=== PATIENT | male | born 1995 | race Two or more races ===

== ENCOUNTER 2025-06-01 20:48 | Emergency (ER) | payer MEDICAID, OTHER, SELFPAY ==
--- NOTE | ~2025-06-01 | CT_ITS ---
CLINICAL HISTORY: chronic bilateral flank and bladder pain CT abdomen and pelvis with contrast Comparison: None provided Findings: No consolidation or effusion. The gallbladder and solid organs are within normal limits. No renal stones. No bowel obstruction, pneumoperitoneum, or pneumatosis. Pelvic contents unremarkable. Normal appendix. The bones are intact. IMPRESSION: No acute findings. No hydronephrosis or nephrolithiasis. This document has been electronically signed by: Lee Mao MD on 06/01/2025 22:35:41
[2025-06-01 20:52] VITALS: BP 118/79; PULSE 85; RESP 20; TEMP 36.8; O2SAT 99
[2025-06-01 21:15] LABS: Hematocrit 41.7 % (42.0-52.0); Hemoglobin 15.0 g/dl (14.0-18.0); Mean Corpuscular HGB Conc 36.0 g/dl (31.0-36.0); Mean Corpuscular Hemoglobin 30.9 pg (27.0-33.0); Mean Corpuscular Volume 86.0 fL (80.0-98.0); NRBC Abs Auto 0.000 X10*3/uL (0.0-0.012); NRBC Pct Auto 0.0 /100WBC (0.0-0.2); Platelet Count 189 X10*3/uL (160-400); Red Blood Count 4.85 X10*6/uL (4.60-5.80); White Blood Count 6.9 X10*3/uL (4.8-10.8)
--- NOTE | 2025-06-01 21:26 | ED_ITS ---
HPI - General Adult General Chief complaint: General Medical Stated complaint: back/testicular pain Time Seen by Provider: 06/01/25 21:14 Source: patient Mode of arrival: ambulatory Limitations: no limitations History of Present Illness ED Provider: Dr. Kiah Hood HPI narrative: Patient comes to the emergency room complaining of 5 years of pelvic pain and testicular pain. Patient states that at initially the pain started out in the bladder region and throughout the years it has been radiating towards both hips. Patient states that he constantly has testicular pain for the last 5 years. Patient reports that he has been seen at various emergency rooms, blood work and urinalysis has been all negative. Patient states that he went to [place] a few weeks ago to get a more thorough workup done. Patient states that he got ultrasounds done, blood cultures, urine cultures. According to the patient, in [place] he was diagnosed with varicocele. Also, patient states that he was diagnosed with an E coli infection in both urine and semen, for which she received p.o. antibiotics. Patient denies any fever, any chills, no weight loss. Patient denies hematuria or dysuria. Related Data Allergies Allergy/AdvReac Type Severity Reaction Status Date / Time No Known Allergies Allergy Verified 06/01/25 20:55 Review of Systems 2 Review of Systems: Constitutional : No Weight loss, No Fever, No Chills, No Night Sweats, No Fatigue, No Malaise ENT/Mouth : No Hearing loss, No Ear Pain, No Nasal Congestion, No Sinus Pain, No Hoarseness, No sore throat, No Rhinorrhea, No Swallowing Difficulty Eyes: No Eye Pain, No Swelling, No Redness, No Foreign Body, No Discharge, No Vision Changes Cardiovascular : No Chest Pain, No SOB, No Dyspnea on Exertion, No Orthopnea, No Edema, No Palpitations Respiratory : No Cough, No Sputum, No Wheezing, No Smoke Exposure, No Dyspnea Gastrointestinal : No Nausea, No Vomiting, No Diarrhea, No Constipation, No abdominal Pain, No Hematochezia, No Melena Genitourinary : Complaining of chronic bladder pain, no hematuria or dysuria Musculoskeletal : Complaining of chronic bilateral hip pain radiating from the suprapubic area, No Myalgias, No Joint Swelling Skin : No Skin Lesions, No rash Neuro : No Weakness, No Numbness, No Paresthesias, No Loss of Consciousness, No Dizziness, No Headache Psych : No Anxiety/Panic, No Depression, No SI/HI/AH/VH, No Social Issues, Heme/Lymph: No Bruising, No Bleeding,No Lymphadenopathy Endocrine : No Polyuria, No Polydipsia, No Temperature Intolerance [facility] Social History Social History Smoked in Last 30 Days: No Use of substances other than those prescribed or required for medical reasons: No Advance Directives: No Advance Directives Information Provided: No Physical Exam ED Exam Exam: Appearance: Alert. Oriented X3. No acute distress. Eyes: Pupils equal, round and reactive to light. ENT: Pharynx normal. Neck: Normal inspection. Neck supple. No lymph nodes noted. No crepitus CVS: Normal heart rate and rhythm. Pulses normal. Normal S1 and S2 Respiratory: No respiratory distress. Breath sounds normal. No Wheezing. No rales Abdomen: Soft and nontender. No rigidity. No distention. : Normal male genitalia, no pain to palpation on the testicles, no swelling, no discoloration. No inguinal masses. No obvious physical findings of varicocele or hydrocele Skin: Skin warm and dry. Normal skin color. Normal skin turgor. Extremities: No lower extremity edema. No Lacerations. No Rash Neuro: Oriented X 3. No motor deficit. No sensory deficit. Moving all extremities. No slurred speech. CN 2 through 12 grossly intact Psych: calm, cooperative, normal affect Vital Signs: Vital Signs - 24 hr 06/01/25 20:52 Temperature 98.2 F Pulse Rate 85 Respiratory Rate 20 Blood Pressure 118/79 Pulse Oximetry 99 Oxygen Delivery Method Room Air BMI result Body Mass Index 30.0 Course Course Course Narrative: Patient complaining of chronic/5 years of suprapubic pain radiating towards the hips. Also, complaining of 5 years of testicular pain. According to patient, he has a thorough workup at various hospitals in the area and in [place]. No new symptoms today. Basic lab work pending. Per patient, he has a results with him from his ultrasounds done previously in [place]. Patient has not had a CT scan done yet. Medications Administered Discontinued Medications Generic Name Dose Route Start Last Admin Trade Name Freq PRN Reason Stop Dose Admin Iohexol 85 ml 06/01/25 21:57 06/01/25 21:57 Iohexol 350 Mg/Ml 100 Ml Infus..Btl IV 06/01/25 21:58 85 ml ONCE ONE Administration Medical Decision Making Medical Decision Making [facility] Narrative: Patient of labs: No significant abnormality patient's hematology and chemistry, urinalysis negative for UTI CT scan does not show any acute abnormality. At this time, I do not believe that an ultrasound of the scrotum/testicles would be of any benefit. Patient reports testicular pain for 5+ years with multiple evaluations at different hospitals into different countries I discussed with the patient the results, no acute findings. We will refer the patient to Urology Patient agrees with plan Differential Diagnosis Differential Diagnoses: The differential diagnosis associated with the presentation includes (Testicular mass, cystitis, varicocele) Admission/Observation Consideration of admission/observation: Escalation of care including admission/observation considered (Patient's length of symptoms, observation was considered) Lab Data [facility] Lab Attestation statement: I reviewed the patient's lab results. 06/01/25 21:10 06/01/25 21:10 Labs: Lab Results 06/01/25 06/01/25 Range/Units 21:10 21:25 WBC 6.9 (4.8-10.8) X10*3/uL RBC 4.85 (4.60-5.80) X10*6/uL Hgb 15.0 (14.0-18.0) g/dl Hct 41.7 L (42.0-52.0) % MCV 86.0 (80.0-98.0) fL MCH 30.9 (27.0-33.0) pg MCHC 36.0 (31.0-36.0) g/dl RDW 12.3 (11.0-16.0) % Plt Count 189 (160-400) X10*3/uL MPV 11.5 (9.4-12.4) fL Absolute Nucleated RBC 0.000 (0.0-0.012) X10*3/uL Nucleated RBC % (auto) 0.0 (0.0-0.2) /100WBC Sodium 139 (135-145) mmol/L Potassium 4.0 (3.3-5.1) mmol/L Chloride 109 H (96-108) mmol/L Carbon Dioxide 22 (22-29) mmol/L Anion Gap 12 (12-20) BUN 8 L (9-16) mg/dL Creatinine 0.83 (0.5-1.4) mg/dL Estim Creat Clear Calc 128.0 Estimated GFR > 60 Random Glucose 85 (60-115) mg/dL Calcium 9.0 (8.4-10.2) mg/dL Total Bilirubin 0.3 (0.0-1.0) mg/dL AST 41 H (5-37) U/L ALT 47 H (0-40) U/L Alkaline Phosphatase 82 (39-117) U/L Total Protein 7.6 (6.5-8.0) g/dL Albumin 4.9 (3.5-5.0) g/dL Urine Color Yellow Urine Appearance Clear Urine pH 5.5 (5.0-9.0) Ur Specific [place] 1.015 (1.005-1.025) Urine Protein Negative (Neg-Trace) mg/dL Urine Glucose (UA) Negative (Negative) mg/dL Urine Ketones Negative (Negative) mg/dL Urine Blood Negative (Negative) Urine Nitrite Negative (Negative) Ur Leukocyte Esterase Negative (Negative) Independent Interpretation I performed an independent interpretation of an: CT Scan Radiology Impression Discussion of test interpretation with radiology: I have reviewed the radiologist's reading. Radiologist Impression: No consolidation or effusion. The gallbladder and solid organs are within normal limits. No renal stones. No bowel obstruction, pneumoperitoneum, or pneumatosis. Pelvic contents unremarkable. Normal appendix. The bones are intact. IMPRESSION: No acute findings. No hydronephrosis or nephrolithiasis. Critical Care Time Critical Care Time Critical Care Time: Yes Total Critical Care Time: 35 Attestation: I have personally provided critical care time. Time includes review of lab data, radiology results, discussion with consultants, and monitoring for potential decompensation. Intervention performed as documented. Discharge Plan Discharge Clinical Impression: Chronic pain in testicle, Chronic suprapubic pain Patient Disposition: Home, Self-Care Instructions: Chronic Pain (ED) Additional Instructions: Please follow-up with your primary care physician tomorrow. If you have any worsening or new symptoms, please return to the emergency room or call 911 Referrals: Henry Gómez MD [Physician, Urology] Print Language: [place]
[2025-06-01 21:31] LABS: Appearance Urine Clear; Glucose Urine UA Negative (Negative); PH 5.5 (5.0-9.0); Specific Gravity - Urine 1.015 (1.005-1.025)
[2025-06-01 21:34] LABS: Alanine Aminotransferase 47 U/L (0-40); Albumin Level 4.9 g/dL (3.5-5.0); Alkaline Phosphatase 82 U/L (39-117); Anion Gap 12 (12-20); Aspartate Amino Transferase 41 U/L (5-37); Blood Urea Nitrogen 8 mg/dL (9-16); Calcium 9.0 mg/dL (8.4-10.2); Carbon Dioxide 22 mmol/L (22-29); Chloride 109 mmol/L (96-108); Creatinine Clr Calc Pharmacy 128.0; Estimated Glomerular Filt Rate > 60; Potassium 4.0 mmol/L (3.3-5.1); Sodium 139 mmol/L (135-145); Total Protein 7.6 g/dL (6.5-8.0)
--- OUTSIDE RECORDS SUMMARY | 2025-06-01 21:50 | XMS_ITS | Clinical Summary ---
Author Organization [facility] Address [address] [place] [address] Phone Care Team Providers Care Optician Apprentice Dispensing Name Role Phone Physician, Pcp Unknown Primary Care Provider Deja vailable Allergies No known active allergies Medications famotidine (PEPCID) 20 mg tablet Take 1 tablet (20 mg total) by mouth 2 (two) times a day. 14 each 11/25/2024 Active Active Problems No known active problems Encounters Date Type Department Care Team Description 05/22/2025 4:24 AM EDT - 05/22/2025 9:45 AM EDT Emergency [facility] Emergency [address] [place] [address] Flaquita Lopez MD Lyle, David C, MD Pain in both testicles (Primary Dx); Burning sensation; Elevated ALT measurement Discharge Disposition: Home or Self Care from Last 3 Months Social History Tobacco Use Types Packs/Day Years Used Date Smoking Tobacco: Never Smokeless Tobacco: Never Tobacco Cessation:Counseling Given: Not Answered Sex and Gender Information Value Date Recorded Sex Assigned at Not on file Legal Sex Male 10:45 AM EST Gender Identity Not on file Sexual Orientation Not on file Travel History Travel Start Travel End [place] 04/21/2025 05/22/2025 Obstetrics History Last Filed Vital Signs Vital Sign Reading Time Taken Comments Blood Pressure 129/89 05/22/2025 6:42 AM EDT Pulse 72 05/22/2025 6:42 AM EDT Temperature 37 C (98.6 F) 05/22/2025 6:42 AM EDT Respiratory Rate 18 05/22/2025 6:42 AM EDT Oxygen Saturation 100% 05/22/2025 6:42 AM EDT Inhaled Oxygen Concentration - - Weight 86.2 kg (190 lb) 05/22/2025 4:18 AM EDT Height 165.1 cm (5' 5 ) 05/22/2025 4:18 AM EDT Body Mass Index 31.62 05/22/2025 4:18 AM EDT Plan of Treatment Health Maintenance Due Date Last Done Comments Hepatitis B Vaccines (1 of 3 - 19+ 3-dose series) 2014 HIV Screening 09/09/2022 Hepatitis C Screening 09/09/2022 Social Influencers of Health Screening 09/09/2022 COVID-19 Vaccine (1 - 2023-2 5 season) 2024 Depression Screening 10/12/2024 Influenza Vaccine (#1) 2025 Cholesterol Screening (Lipid Panel) 11/25/2029 11/25/2024 DTaP,Tdap,and Td Vaccines (2 - Td or Tdap) 04/02/2033 04/02/2023 HIB Vaccines Aged Out No longer eligi ble based on patient's age to complete this topic HPV Vaccines Aged Out No longer eligi ble based on patient's age to complete this topic Hepatitis A Vaccines Aged Out No long er eligible based on patient's age to complete this topic IPV Vaccines Aged Out No longer eligi ble based on patient's age to complete this topic MMR Vaccines Aged Out No longer eligi ble based on patient's age to complete this topic Meningococcal ACWY Vaccine Aged Out N o longer eligible based on patient's age to complete this topic Meningococcal B Vaccine Aged Out No l onger eligible based on patient's age to complete this topic Pneumococcal Vaccine: Pediat rics (0 to 5 Years) and At-Risk Patients (6 to 49 Years) Aged Out No longer eligi ble based on patient's age to complete this topic RSV Immunization Patients Un reyes 20 months Aged Out No longer eligible b ased on patient's age to complete this topic Varicella Vaccines Aged Out No longer eligible based on patient's age to complete this topic Procedures Procedure Name Priority Date/Time Associated Diagnosis Comments CULTURE GENITAL STAT 05/22/2025 7:47 AM EDT US SCROTUM AND CONTENTS STAT 05/22/2025 7:31 AM EDT ASIF URINE CULTURE TUBE STAT 05/22/2025 5:53 AM EDT URINALYSIS WITH REFLEX MICROSCOPIC AND CULTURE STAT 05/22/2025 5:53 AM EDT URINALYSIS WITH REFLEX MICROSCOPIC AND CULTURE STAT 05/22/2025 5:53 AM EDT CHLAMYDIA TRACHOMATIS AND NEISSERIA GONORRHOEAE PCR STAT 05/22/2025 5:53 AM EDT CREATINE KINASE Add-On 05/22/2025 5:52 AM EDT CBC WITH AUTO DIFFERENTIAL STAT 05/22/2025 5:52 AM EDT C-REACTIVE PROTEIN STAT 05/22/2025 5: 52 AM EDT COMPREHENSIVE METABOLIC PANEL STAT 05/22/2025 5:52 AM EDT CBC AND DIFFERENTIAL STAT 05/22/2025 5:52 AM EDT LIPID PANEL WITH REFLEX TO DIRECT LDL Routine 11/25/2024 8:49 AM EST Generalized anxiety disorder from Last 3 Months or Most Recently Relevant to Health Maintenance Results * Culture genital (05/22/2025 7:47 AM EDT) Culture, Genital No yeast, Beta Strep group B, Neisseria gonorrhoeae, Listeria, Gardnerella vaginalis, or other predominant potentially significant pathogens noted. 05/25/2025 9:26 AM EDT [facility] Swab Urethral structure / Unknown Non-blood Collection / Unknown 05/22/2025 7:47 AM EDT 05/22/2025 8:07 AM EDT us Flaquita Lopez MD LAB MICROBIOLOGY - GENERAL ORD ERABLES Final Result [place] TRIPATH[facility] [place] ([facility]) [facility] [address] [place] [address], * US Scrotum and Contents (05/22/2025 7:31 AM EDT) Anatomical Region Laterality Modality Body Ultrasound 05/22/2025 8:10 AM EDT Impressions 05/22/2025 8:17 AM EDT Normal testicular ultrasound. -------- FINAL REPORT -------- Dictated By: Joe Hobbs Dictated Date: 05/22/2025 08:10 ET Assigned Physician: Joe Hobbs Reviewed and Electronically Signed By: Joe Hobbs Signed Date: 05/22/2025 08:17 ET Workstation ID: [id number] Transcribed By: Self Edit Transcribed Date: 05/22/2025 08:10 ET Narrative 05/22/2025 8:17 AM EDT PROCEDURE: Testicular ultrasound. HISTORY: Bilateral testicular pain, concern for epididymitis. TECHNIQUE: Grayscale, color Doppler, and spectral Doppler ultrasound of the testicles. COMPARISON: 06/20/2024. FINDINGS: The right testicle measures 4.3 x 2.1 x 3.0 cm. The left testicle measures 4.1 x 2.0 x 3.1 cm. No testicular mass. Normal bilateral testicular Doppler flow. Normal appearance of the epididymes, also with normal Doppler flow. Procedure Note Joe Hobbs MD - 05/22/2025 PROCEDURE: Testicular ultrasound. HISTORY: Bilateral testicular pain, concern for epididymitis. TECHNIQUE: Grayscale, color Doppler, and spectral Doppler ultrasound ofthe testicles. COMPARISON: 06/20/2024. FINDINGS: The right testicle measures 4.3 x 2.1 x 3.0 cm. The left testicle measures 4.1 x 2.0 x 3.1 cm. No testicular mass. Normal bilateral testicular Doppler flow. Normalappearance of the epididymes, also with normal Doppler flow. IMPRESSION: Normal testicular ultrasound. -------- FINAL REPORT -------- Dictated By: Joe Hobbs Dictated Date: 05/22/2025 08:10 ET Assigned Physician: Joe Hobbs Reviewed and Electronically Signed By: Joe Hobbs Signed Date: 05/22/2025 08:17 ET Workstation ID: [id number] Transcribed By: Self Edit Transcribed Date: 05/22/2025 08:10 ET Flaquita Lopez MD [facility] PROCEDURES Final Result * Urinalysis with reflex microscopic and culture (05/22/2025 5:53 AM EDT) Pathologist [facility] Specific [place] Urine 1.019 1.003 - 1.030 LAB URINALYSIS - AUTOMATED METHOD 05/22/2025 6:17 AM [facility] pH, Urine 6.0 5.0 - 8.0 pH LAB URINALYSIS - AUTOMATED METHOD 05/22/2025 6:17 AM [facility] Leukocytes, Urine Negative Negative LAB URINALYSIS - AUTOMATED METHOD 05/22/2025 6:17 AM [facility] Nitrite, Urine Negative Negative LAB URINALYSIS - AUTOMATED METHOD 05/22/2025 6:17 AM [facility] Protein, Urine Negative <=Trace mg/dL LAB URINALYSIS - AUTOMATED METHOD 05/22/2025 6:17 AM [facility] Glucose, Urine Negative Negative mg/dL LAB URINALYSIS - AUTOMATED METHOD 05/22/2025 6:17 AM [facility] Ketones, Urine Negative Negative mg/dL LAB URINALYSIS - AUTOMATED METHOD 05/22/2025 6:17 AM [facility] Urobilinogen, Urine 0.2 0.2 - 1.0 mg/dL LAB URINALYSIS - AUTOMATED METHOD 05/22/2025 6:17 AM [facility] Bilirubin, Urine Negative Negative LAB URINALYSIS - AUTOMATED METHOD 05/22/2025 6:17 AM [facility] Blood, Urine Negative Negative LAB URINALYSIS - AUTOMATED METHOD 05/22/2025 6:17 AM EDT [facility] Urine Urine specimen obtained by clean catch procedure / Unknown Non-blood Collection / Unknown 05/22/2025 5:53 AM EDT 05/22/2025 6:11 AM EDT Flaquita Lopez MD LAB URINE ORDERABLES Final Res ult Performing Organization Address City/[facility]/ZIP Co de Phone Number [facility] [address] [place] [address], [place] [phone] * Asif urine culture tube (05/22/2025 5:53 AM EDT) Pathologist [facility] Extra Tube Hold for add-ons. 05/22/2025 8:01 AM EDT [facility] Comment:Auto resulted. Urine Urine specimen obtained by clean catch procedure / Unknown Non-blood Collection / Unknown 05/22/2025 5:53 AM EDT 05/22/2025 6:11 AM EDT us Flaquita Lopez MD LAB URINE ORDERABLES Final Res ult Performing Organization Address City/[facility]/ZIP Co de Phone Number [facility] [address] [place] [address], [place] [phone] * Chlamydia trachomatis and Neisseria gonorrhoeae molecular study (05/22/2025 5:53 AM EDT) Pathologist [facility] Neisseria gonorrhoeae PCR Negative Negative LAB MOLECULAR DIAGNOSTICS METHOD 05/22/2025 9:21 AM EDT [facility] Chlamydia trachomatis PCR Negative Negative LAB MOLECULAR DIAGNOSTICS METHOD 05/22/2025 9:21 AM EDT [facility] Urine Urine specimen obtained by clean catch procedure / Unknown Non-blood Collection / Unknown 05/22/2025 5:53 AM EDT 05/22/2025 6:11 AM EDT us Flaquita Lopez MD LAB MICROBIOLOGY - GENERAL ORD ERABLES Final Result [facility] [address] [place] [address], * (ABNORMAL) CBC auto differential (05/22/2025 5:52 AM EDT) WBC 7.1 4.8 - 10.8 K/mcL LAB HEMETOLOGY METHOD 05/22/2025 6:22 AM EDT [facility] RBC 4.60 4.50 - 5.50 M/mcL LAB HEMETOLOGY METHOD 05/22/2025 6:22 AM EDT [facility] Hemoglobin 14.1 13.5 - 17.5 g/dL LAB HEMETOLOGY METHOD 05/22/2025 6:22 AM EDT [facility] Hematocrit 40.6(L) 42.0 - 54.0 % LAB HEMETOLOGY METHOD 05/22/2025 6:22 AM EDT [facility] MCV 88.1 79.0 - 98.0 FL LAB HEMETOLOGY METHOD 05/22/2025 6:22 AM EDT [facility] MCH 30.6 27.0 - 32.0 pcg LAB HEMETOLOGY METHOD 05/22/2025 6:22 AM EDT [facility] MCHC 34.7 32.0 - 37.0 g/dL LAB HEMETOLOGY METHOD 05/22/2025 6:22 AM EDT [facility] RDW 12.7 11.0 - 15.0 % LAB HEMETOLOGY METHOD 05/22/2025 6:22 AM EDT [facility] Platelets 183 130 - 400 K/mcL LAB HEMETOLOGY METHOD 05/22/2025 6:22 AM EDT [facility] MPV 11.1(H) 7.0 - 11.0 FL LAB HEMETOLOGY METHOD 05/22/2025 6:22 AM [facility] NRBC 0.0 <1.0 % LAB HEMETOLOGY METHOD 05/22/2025 6:22 AM [facility] NRBC Absolute 0.00 <0.10 K/mcL LAB HEMETOLOGY METHOD 05/22/2025 6:22 AM [facility] Neutrophils Relative 56.3 % LAB HEMETOLOGY METHOD 05/22/2025 6:22 AM [facility] Lymphocytes Relative 31.4 % LAB HEMETOLOGY METHOD 05/22/2025 6:22 AM [facility] Monocytes Relative 9.1 % LAB HEMETOLOGY METHOD 05/22/2025 6:22 AM [facility] Eosinophils Relative 2.5 % LAB HEMETOLOGY METHOD 05/22/2025 6:22 AM [facility] Basophils Relative 0.3 % LAB HEMETOLOGY METHOD 05/22/2025 6:22 AM [facility] Immature Granulocytes Relative 0.4 % LAB HEMETOLOGY METHOD 05/22/2025 6:22 AM [facility] Neutrophils Absolute 3.97 1.50 - 7.00 K/mcL LAB HEMETOLOGY METHOD 05/22/2025 6:22 AM [facility] Lymphocytes Absolute 2.22 1.00 - 5.00 K/mcL LAB HEMETOLOGY METHOD 05/22/2025 6:22 AM [facility] Monocytes Absolute 0.64 0.20 - 1.00 K/mcL LAB HEMETOLOGY METHOD 05/22/2025 6:22 AM [facility] Eosinophils Absolute 0.18 0.00 - 0.50 K/mcL LAB HEMETOLOGY METHOD 05/22/2025 6:22 AM [facility] Basophils Absolute 0.02 0.00 - 0.20 K/mcL LAB HEMETOLOGY METHOD 05/22/2025 6:22 AM EDT [facility] Immature Granulocytes Absolute 0.03 0.00 - 0.03 K/mcL LAB HEMETOLOGY METHOD 05/22/2025 6:22 AM EDT [facility] Blood Venous blood specimen / Unknown Venipuncture / Unknown 05/22/2025 5:52 AM EDT 05/22/2025 6:10 AM EDT us Flaquita Lopez MD LAB BLOOD ORDERABLES Final Res ult [facility] [address] [place] [address], [place] [phone] * C-reactive protein (05/22/2025 5:52 AM EDT) C-Reactive Protein <0.29 <=0.50 mg/dL LAB CHEMISTRY METHOD 05/22/2025 6:36 AM EDT [facility] Blood Venous blood specimen / Unknown Venipuncture / Unknown 05/22/2025 5:52 AM EDT 05/22/2025 6:11 AM EDT us Flaquita Lopez MD LAB BLOOD ORDERABLES Final Res ult [facility] [address] [place] [address], [place] [phone] * Creatine kinase (05/22/2025 5:52 AM EDT) Total CK 110 22 - 269 unit/L LAB CHEMISTRY METHOD 05/22/2025 6:36 AM EDT [facility] Blood Venous blood specimen / Unknown Venipuncture / Unknown 05/22/2025 5:52 AM EDT 05/22/2025 6:11 AM EDT us Flaquita Lopez MD LAB BLOOD ORDERABLES Final Res ult [facility] [address] [place] [address], * (ABNORMAL) Comprehensive metabolic panel (05/22/2025 5:52 AM EDT) Sodium 139 133 - 145 mmol/L LAB CHEMISTRY METHOD 05/22/2025 6:37 AM [facility] Potassium 4.0 3.5 - 5.5 mmol/L LAB CHEMISTRY METHOD 05/22/2025 6:37 AM [facility] Chloride 107 96 - 110 mmol/L LAB CHEMISTRY METHOD 05/22/2025 6:37 AM [facility] CO2 26 21 - 32 mmol/L LAB CHEMISTRY METHOD 05/22/2025 6:37 AM [facility] Anion Gap 6 3 - 11 LAB CHEMISTRY METHOD 05/22/2025 6:37 AM [facility] Glucose 99 70 - 100 mg/dL LAB CHEMISTRY METHOD 05/22/2025 6:37 AM [facility] BUN 10 5 - 25 mg/dL LAB CHEMISTRY METHOD 05/22/2025 6:37 AM [facility] Creatinine 0.95 0.70 - 1.30 mg/dL LAB CHEMISTRY METHOD 05/22/2025 6:37 AM [facility] eGFR 110 >=60 mL/min/1. 73m2 LAB CHEMISTRY METHOD 05/22/2025 6:37 AM [facility] Comment:Calculation based on the Chronic Kidney Disease Epidemiology Collaboration (CKD-EPI) equation refit without adjustment for race. BUN/Creatinine Ratio 10.5 LAB CHEMISTRY METHOD 05/22/2025 6:37 AM [facility] Calcium 8.7 8.5 - 10.5 mg/dL LAB CHEMISTRY METHOD 05/22/2025 6:37 AM EDT [facility] AST (SGOT) 35 10 - 42 unit/L LAB CHEMISTRY METHOD 05/22/2025 6:37 AM [facility] ALT (SGPT) 67(H) 10 - 60 unit/L LAB CHEMISTRY METHOD 05/22/2025 6:37 AM [facility] Alkaline Phosphatase 82 42 - 121 unit/L LAB CHEMISTRY METHOD 05/22/2025 6:37 AM [facility] Total Protein 6.8 6.0 - 8.0 g/dL LAB CHEMISTRY METHOD 05/22/2025 6:37 AM [facility] Albumin 3.9 3.2 - 5.0 g/dL LAB CHEMISTRY METHOD 05/22/2025 6:37 AM [facility] Total Bilirubin 0.6 0.0 - 1.4 mg/dL LAB CHEMISTRY METHOD 05/22/2025 6:37 AM [facility] Blood Venous blood specimen / Unknown Venipuncture / Unknown 05/22/2025 5:52 AM EDT 05/22/2025 6:11 AM EDT us Flaquita Lopez MD LAB BLOOD ORDERABLES Final Res ult [facility] [address] [place] [address], * (ABNORMAL) Lipid panel with reflex to direct LDL (11/25/2024 8:49 AM EST) Cholesterol 189 0 - 200 mg/dL LAB CHEMISTRY METHOD 11/25/2024 10:16 AM EST [facility] Triglycerides 128 0 - 150 mg/dL LAB CHEMISTRY METHOD 11/25/2024 10:16 AM EST [facility] HDL 40 >=40 mg/dL LAB CHEMISTRY METHOD 11/25/2024 10:16 AM EST [facility] LDL Calculated 123(H) 0 - 100 mg/dL LAB CHEMISTRY METHOD 11/25/2024 10:16 AM EST [facility] VLDL Cholesterol Rowdy 25.6 mg/dL LAB CHEMISTRY METHOD 11/25/2024 10:16 AM EST [facility] Non HDL Chol. (LDL+VLDL) 149(H) <145 mg/dL LAB CHEMISTRY METHOD 11/25/2024 10:16 AM EST [facility] Chol/HDL Ratio 4.7(H) 0.0 - 4.4 LAB CHEMISTRY METHOD 11/25/2024 10:16 AM EST [facility] Blood Venous blood specimen / Unknown Venipuncture / Unknown 11/25/2024 8:49 AM EST 11/25/2024 10:11 AM EST us Nicolás Fitzpatrick MD LAB BLOOD ORDERABLES Final Re sult [facility] [address] [place] [address], from Last 3 Months or Most Recently Relevant to Health Maintenance Insurance MEDICAID - [place] Care Teams Optician Apprentice Dispensing Relationship Specialty Start Date End Date Physician, Pcp Unknown PCP - General 11/25/24
[2025-06-01] MEDS: iohexoL 350 MG/ML 100 ML INFUS..BTL 85 ML IV (21:57)
[2025-06-01 23:17] VITALS: BP 118/79; PULSE 85; RESP 20; TEMP 36.8; O2SAT 99
== END 2025-06-01 23:17 | disposition home or self-care (01) ==
PROVIDERS: Emergency Provider Emergency Medicine
DX: N50.811 Right testicular pain (principal); N50.812 Left testicular pain; R10.2 Pelvic and perineal pain; Z79.899 Other long term (current) drug therapy
CPT/HCPCS: 36415; 74177; 80053; 81003; 85027; 99284; Q9967

== ENCOUNTER → 2025-06-01 21:26 | Outpatient (BNV) | payer MEDICAID, SELFPAY | PROVIDERS: Emergency Provider Emergency Medicine; Visit Provider Student in an Organized Health Care Education/Training Program | DX: R10.9 Unspecified abdominal pain (principal); R39.89 Other symptoms and signs involving the genitourinary system | CPT/HCPCS: 74177 ==